=== PATIENT | female | born 1995 | race Caucasian/White ===

== ENCOUNTER 2019-04-23 09:57 | Emergency (ER) | payer OTHER ==
[2019-04-23 10:08] VITALS: TEMP 98.2; BMI 23.7
[2019-04-23] MEDS ORDERED: ACETAMINOPHEN 325 MG TABLET (FP) PO ONE (11:24)
[2019-04-23] MEDS ORDERED: ACETAMINOPHEN 325 MG TABLET (FP) ONE (11:30)
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
[2019-04-23 13:28] VITALS: BP 125/74; PULSE 87
== END 2019-04-23 13:28 | disposition home or self-care (01) ==
LOC: JER 09:57
DX: S70.02XA Contusion of left hip, initial encounter (principal); S09.90XA Unspecified injury of head, initial encounter; V43.52XA Car driver injured in collision with other type car in traffic accident, initial encounter; Y93.89 Activity, other specified; Y92.410 Unspecified street and highway as the place of occurrence of the external cause
CPT/HCPCS: 70450-TC; 73523-TC-FY; 84703; 99282-25